=== PATIENT | female | born 1990 | race Two or more races ===

== ENCOUNTER → 2017-09-25 | Emergency (ER) | payer OTHER ==
[~2017-09-25] VITALS: Ht 157.5 cm; Wt 77.1 kg
[~2017-09-25] MED LIST: FOLIC ACID0.8 MG PO; FOLIC ACID1 MG PO; OSTERA TABLET1 EACH PO; PRENATABS RX T1 EACH PO; PRENATAL TABLE1 EAC4 PO; SYNTHROID50 MCG PO; TYLENOL EXTRA500 MG PO; VITAMIN D400 UNI2 PO
== END | disposition home or self-care (01) ==
LOC: ER 02:50
DX: M54.6 Pain in thoracic spine (principal)

== ENCOUNTER 2020-08-28 21:15 | Emergency (ER) | payer OTHER ==
[~2020-08-28] VITALS: Ht 157.5 cm; Wt 73.5 kg
[2020-08-28] MEDS ORDERED: SYNTHROID75 MCG PO (21:29)
[2020-08-28] MEDS ORDERED: ULTRACET PO (21:55)
== END 2020-08-28 22:00 | disposition home or self-care (01) ==
LOC: ER 21:15
DX: K08.89 Other specified disorders of teeth and supporting structures (principal)

== ENCOUNTER 2024-11-06 13:49 | Emergency (ER) | payer OTHER ==
[~2024-11-06] VITALS: Ht 157.5 cm; Wt 71.2 kg
[~2024-11-06 13:49] MED LIST changes: +SYNTHROID75 MCG PO; +ULTRACET PO
[2024-11-06] MEDS ORDERED: KETOROLAC TROMETHAMINE 30 MG VIAL IM STA (16:54)
[2024-11-06] MEDS ORDERED: KETOROLAC TROMETHAMINE 30 MG VIAL ONE (16:59)
[2024-11-06 17:21] LABS: HEMATOCRIT 36.4 % (36.0-45.00); MEAN CORPUSCULAR HEMOGLOBIN 25.7 pg (27.00-32.0); MEAN CORPUSCULAR HGB CONC 32.9 g/dl (32.0-36.0); PLATELET COUNT 267 K/uL (150-450); RED BLOOD COUNT 4.67 M/uL (4.00-6.00); RED CELL DISTRIBUTION WIDTH 13.1 % (11.5-14.5)
== END 2024-11-06 18:15 | disposition home or self-care (01) ==
LOC: ER 13:49
PROVIDERS: General Practice
DX: M25.59 Pain in other specified joint (principal); R21 Rash and other nonspecific skin eruption; Z88.8 Allergy status to other drugs, medicaments and biological substances